=== PATIENT | male | born 1985 | race American Indian/Alaskan Native ===

== ENCOUNTER 2018-10-21 14:05 | Inpatient (IN) | payer MEDICARE ==
[2018-10-21] MEDS ORDERED: NACL 0.9% 1000 ML 1,000 ML IV ONE (14:42)
[2018-10-21] MEDS ORDERED: HALDOL IM ONE (14:42)
[2018-10-21 15:24] LABS: Bacteria,Urine 1+ /HPF (Negative); Bilirubin,Urine NEG (Negative); Blood,Urine SM (Negative); Color,Urine Yellow (Yellow); Mucus,Urine FEW /HPF
--- NOTE | 2018-10-21 15:25 | XRay Report ---
AP CHEST: HISTORY: Altered mental status AP view of the chest demonstrates a normal mediastinal and cardiac contour with clear lungs and normal bony and soft tissue structures. IMPRESSION: Unremarkable AP chest.
[2018-10-21 15:33] LABS: Benzodiazepines Screen,Urine PRESUMPTIVE NEGATIVE; Cannabinoid Screen,Urine PRESUMPTIVE NEGATIVE; Cocaine Screen,Urine PRESUMPTIVE NEGATIVE; Methadone Screen,Urine PRESUMPTIVE NEGATIVE; Opiate Screen,Urine PRESUMPTIVE NEGATIVE
[2018-10-21 15:48] LABS: Amphetamine Screen,Urine PRESUMPTIVE POSITIVE
[2018-10-21 16:13] LABS: Alanine Aminotransferase < 5 units/L (7-56); BUN/Creatinine Ratio 19; Blood Urea Nitrogen 21 mg/dL (9-20); Calcium 8.8 mg/dL (8.4-10.2); Hemolysis Index 19
[2018-10-21] MEDS ORDERED: ATIVAN IV ONE (16:24)
--- NOTE | 2018-10-21 16:24 | Emergency Department Report ---
ED Altered Mental Status HPI - General Chief Complaint: Psych Stated Complaint: AUTISM/MH Time Seen by Provider: 10/21/18 14:21 Source: family Mode of arrival: Ambulatory Limitations: Altered Mental Status - History of Present Illness Initial Comments: Ariel is a 32 yo male with hx of severe intellectual disability and autism who presents with agitation, altered mental status. He is nonverbal at baseline. Over the last year, behavior has escalated to agitation and defiance. However, over the last day, his behavior has become severe. He scratched himself severely. He threw objects from the wall. He seemed dazed at times. Refused to eat, walk or answer questions. Brought to ED by private auto with caregivers. He receives 24-hour care a month as to legal guardians and caregiver. He is not left unattended. He has not been around unknown persons. Has never been admitted in the past. Does not require mood stablizers. Only medications: nasal spray, albuterol nebulizer and MDI Caregiver noticed twitching in hands and feet. Has been under the care of legal guardians and Mrs. Bernal for the past 23 years. Mrs. Aster Rodriguez is bedside. She is a caregiver who assists and Mrs. Bernal. She has known Ariel for 23 years Ms. Aster Rodriguez phone number Mrs. Lata Bernal Followed by PCP Angeli Fernandez MD Complaint: altered mental status, decreased responsiveness -: days(s) (1) Severity: severe Consistency of Symptoms: getting worse - Related Data Previous Rx's Medication Instructions Recorded Last Taken Type ALBUTEROL Inhaler (OR & NICU) 2 puff IH QID PRN #1 inhalation 01/28/14 03/14/15 Rx [ProAir HFA Inhaler] Allergies Allergy/AdvReac Type Severity Reaction Status Date / Time No Known Allergies Allergy Verified 03/14/15 23:40 ED Review of Systems ROS: Stated complaint: AUTISM/MH Other details as noted in HPI Comment: Unobtainable due to pts medical conditions (severe and intellectual disability and autism history of recent mental status) ED Past Medical Hx - Past Medical History Previous Medical History?: Yes Hx Asthma: Yes Additional medical history: AUTISM, MILD RETARDATION - Surgical History Additional Surgical History: NOSE SURGERY - Family History Family history: other (unknown, both parents are ) - Social History Smoking Status: Unknown if ever smoked Other Social History: Ariel has been under care of legal guardians for past 23 years - Medications Home Medications: Home Medications Medication Instructions Recorded Confirmed Last Taken Type ALBUTEROL Inhaler (OR & NICU) 2 puff IH QID PRN #1 inhalation 01/28/14 10/21/18 03/14/15 Rx [ProAir HFA Inhaler] ED Physical Exam - General Limitations: Language Barrier, Altered Mental Status General appearance: lethargic, other (case eyes closed appears disease) - Head Head exam: Present: atraumatic, normocephalic - Eye Eye exam: Present: normal appearance - ENT ENT exam: Present: mucous membranes moist - Neck Neck exam: Present: normal inspection - Respiratory Respiratory exam: Present: normal lung sounds bilaterally. Absent: respiratory distress - Cardiovascular Cardiovascular Exam: Present: regular rate, normal rhythm. Absent: systolic murmur, diastolic murmur, rubs, gallop - GI/Abdominal GI/Abdominal exam: Present: soft, normal bowel sounds - Rectal Rectal exam: Present: deferred - Extremities Exam Extremities exam: Present: normal inspection - Back Exam Back exam: Present: normal inspection - Neurological Exam Neurological exam: Present: alert, oriented X3 - Psychiatric Psychiatric exam: Present: normal affect, normal mood - Skin Skin exam: Present: other (multiple scratches on face and extremities). Absent: rash ED Course Vital Signs 10/21/18 10/21/18 10/21/18 14:49 14:50 20:00 Temperature 97.9 F 98.5 F Pulse Rate 69 97 H Respiratory 19 18 18 Rate Blood Pressure 149/91 149/89 [Right] O2 Sat by Pulse 100 100 97 Oximetry - Lab Data Result diagrams: 10/22/18 06:40 10/22/18 06:40 Lab Results 10/21/18 10/21/18 10/21/18 Range/Units 14:48 14:48 15:26 Sodium 143 (137-145) mmol/L Potassium 3.7 (3.6-5.0) mmol/L Chloride 106.7 (98-107) mmol/L Carbon Dioxide 24 (22-30) mmol/L Anion Gap 16 mmol/L BUN 21 H (9-20) mg/dL Creatinine 1.1 (0.8-1.5) mg/dL Estimated GFR > 60 ml/min BUN/Creatinine Ratio 19 % Glucose 128 H (75-100) mg/dL Lactic Acid (0.7-2.0) mmol/L Calcium 8.8 (8.4-10.2) mg/dL Total Bilirubin 0.30 (0.1-1.2) mg/dL AST 20 (5-40) units/L ALT < 5 L (7-56) units/L Alkaline Phosphatase 70 (35-129) units/L Ammonia (25-60) umol/L Total Creatine Kinase 318 H (55-170) units/L Troponin T < 0.010 (0.00-0.029) ng/mL Total Protein 7.3 (6.3-8.2) g/dL Albumin 4.0 (3.9-5) g/dL Albumin/Globulin Ratio 1.2 % TSH (0.270-4.200) mlU/mL Urine Color Yellow (Yellow) Urine Turbidity Cloudy (Clear) Urine pH 5.0 (5.0-7.0) Ur Specific [place] 1.039 H (1.003-1.030) Urine Protein 100 mg/dl (Negative) mg/dL Urine Glucose (UA) 50 (Negative) mg/dL Urine Ketones Tr (Negative) mg/dL Urine Blood Sm (Negative) Urine Nitrite Neg (Negative) Urine Bilirubin Neg (Negative) Urine Urobilinogen 2.0 (<2.0) mg/dL Ur Leukocyte Esterase Neg (Negative) Urine WBC (Auto) 2.0 (0.0-6.0) /HPF Urine RBC (Auto) 1.0 (0.0-6.0) /HPF U Epithel Cells (Auto) < 1.0 (0-13.0) /HPF Urine Bacteria (Auto) 1+ (Negative) /HPF Urine Mucus Few /HPF Urine Yeast (Budding) Few /HPF Salicylates (2.8-20.0) mg/dL Urine Opiates Screen Presumptive negative Urine Methadone Screen Presumptive negative Acetaminophen (10.0-30.0) ug/mL Ur Barbiturates Screen Presumptive negative Ur Phencyclidine Scrn Presumptive negative Ur Amphetamines Screen Presumptive positive U Benzodiazepines Scrn Presumptive negative Urine Cocaine Screen Presumptive negative U Marijuana (THC) Screen Presumptive negative Drugs of Abuse Note Disclamer Plasma/Serum Alcohol (0-0.07) % 10/21/18 10/21/18 10/21/18 Range/Units 15:26 15:26 15:26 Sodium (137-145) mmol/L Potassium (3.6-5.0) mmol/L Chloride (98-107) mmol/L Carbon Dioxide (22-30) mmol/L Anion Gap mmol/L BUN (9-20) mg/dL Creatinine (0.8-1.5) mg/dL Estimated GFR ml/min BUN/Creatinine Ratio % Glucose (75-100) mg/dL Lactic Acid 3.00 H* (0.7-2.0) mmol/L Calcium (8.4-10.2) mg/dL Total Bilirubin (0.1-1.2) mg/dL AST (5-40) units/L ALT (7-56) units/L Alkaline Phosphatase (35-129) units/L Ammonia 17.0 L (25-60) umol/L Total Creatine Kinase (55-170) units/L Troponin T (0.00-0.029) ng/mL Total Protein (6.3-8.2) g/dL Albumin (3.9-5) g/dL Albumin/Globulin Ratio % TSH 0.534 (0.270-4.200) mlU/mL Urine Color (Yellow) Urine Turbidity (Clear) Urine pH (5.0-7.0) Ur Specific [place] (1.003-1.030) Urine Protein (Negative) mg/dL Urine Glucose (UA) (Negative) mg/dL Urine Ketones (Negative) mg/dL Urine Blood (Negative) Urine Nitrite (Negative) Urine Bilirubin (Negative) Urine Urobilinogen (<2.0) mg/dL Ur Leukocyte Esterase (Negative) Urine WBC (Auto) (0.0-6.0) /HPF Urine RBC (Auto) (0.0-6.0) /HPF U Epithel Cells (Auto) (0-13.0) /HPF Urine Bacteria (Auto) (Negative) /HPF Urine Mucus /HPF Urine Yeast (Budding) /HPF Salicylates (2.8-20.0) mg/dL Urine Opiates Screen Urine Methadone Screen Acetaminophen (10.0-30.0) ug/mL Ur Barbiturates Screen Ur Phencyclidine Scrn Ur Amphetamines Screen U Benzodiazepines Scrn Urine Cocaine Screen U Marijuana (THC) Screen Drugs of Abuse Note Plasma/Serum Alcohol (0-0.07) % 10/21/18 10/21/18 10/21/18 Range/Units 15:26 15:26 15:26 Sodium (137-145) mmol/L Potassium (3.6-5.0) mmol/L Chloride (98-107) mmol/L Carbon Dioxide (22-30) mmol/L Anion Gap mmol/L BUN (9-20) mg/dL Creatinine (0.8-1.5) mg/dL Estimated GFR ml/min BUN/Creatinine Ratio % Glucose (75-100) mg/dL Lactic Acid (0.7-2.0) mmol/L Calcium (8.4-10.2) mg/dL Total Bilirubin (0.1-1.2) mg/dL AST (5-40) units/L ALT (7-56) units/L Alkaline Phosphatase (35-129) units/L Ammonia (25-60) umol/L Total Creatine Kinase (55-170) units/L Troponin T (0.00-0.029) ng/mL Total Protein (6.3-8.2) g/dL Albumin (3.9-5) g/dL Albumin/Globulin Ratio % TSH (0.270-4.200) mlU/mL Urine Color (Yellow) Urine Turbidity (Clear) Urine pH (5.0-7.0) Ur Specific [place] (1.003-1.030) Urine Protein (Negative) mg/dL Urine Glucose (UA) (Negative) mg/dL Urine Ketones (Negative) mg/dL Urine Blood (Negative) Urine Nitrite (Negative) Urine Bilirubin (Negative) Urine Urobilinogen (<2.0) mg/dL Ur Leukocyte Esterase (Negative) Urine WBC (Auto) (0.0-6.0) /HPF Urine RBC (Auto) (0.0-6.0) /HPF U Epithel Cells (Auto) (0-13.0) /HPF Urine Bacteria (Auto) (Negative) /HPF Urine Mucus /HPF Urine Yeast (Budding) /HPF Salicylates < 0.3 L (2.8-20.0) mg/dL Urine Opiates Screen Urine Methadone Screen Acetaminophen < 5.0 L (10.0-30.0) ug/mL Ur Barbiturates Screen Ur Phencyclidine Scrn Ur Amphetamines Screen U Benzodiazepines Scrn Urine Cocaine Screen U Marijuana (THC) Screen Drugs of Abuse Note Plasma/Serum Alcohol < 0.01 (0-0.07) % 10/21/18 16:55 Normal sinus rhythm rate 90 beats a minute axis deviation nonspecific T wave pattern no significant ST elevation - Radiology Data Radiology results: report reviewed AP portable chest radiograph no acute process according to radiology report - Medical Decision Making Ariel presents with altered mental status, differential diagnosis includes infection, polypharmacy, unintentional drug ingestion, seizure, head trauma. Current mental status different from baseline. Ariel appears dazed and delirious. +UDS amphetamine, possible drug ingestion, Admitted to hospitalist service for further w/u Critical care attestation.: If time is entered above; I have spent that time in minutes in the direct care of this critically ill patient, excluding procedure time. ED Disposition Clinical Impression: Acute encephalopathy Disposition: 09 OP ADMIT IP TO THIS HOSP Is pt being admited?: Yes Does the pt Need Aspirin: No Condition: Fair
[2018-10-21 16:44] LABS: Basophils % (Auto) 0.1 % (0.0-1.8); Hematocrit 41.6 % (35.5-45.6); Hemoglobin 14.3 gm/dl (11.8-15.2); Lymphocytes # (Auto) 0.3 K/mm3 (1.2-5.4); Lymphocytes % (Auto) 2.6 % (13.4-35.0); Mean Corpuscular HGB Conc 34 % (32-34); Mean Corpuscular Volume 94 fl (84-94); Monocytes # (Auto) 1.1 K/mm3 (0.0-0.8); Monocytes % (Auto) 8.2 % (0.0-7.3); Platelet Count 222 K/mm3 (140-440); Red Blood Count 4.43 M/mm3 (3.65-5.03); Red Cell Distribution Width 13.1 % (13.2-15.2)
--- NOTE | 2018-10-21 19:09 | Cat Scan Report ---
PROCEDURE: CT HEAD/BRAIN WO CON TECHNIQUE: Axial helical imaging from the skull base to the vertex. HISTORY: Altered Mental Status COMPARISONS: None FINDINGS: There is no evidence of an acute intracranial process, intracranial hemorrhage or mass effect. The ventricles are normal size. The visualized portions of the orbits, paranasal and mastoid sinuses are unremarkable. The bony structures are unremarkable. IMPRESSION: 1. No evidence of an acute intracranial process, intracranial hemorrhage or mass effect. If there is a clinical suspicion of an acute intracranial process, MRI brain may be helpful for furth er evaluation. This document is electronically signed by Sandra Coello MD., October 21 2018 07:06:40 PM ET
--- NOTE | 2018-10-21 22:10 | Event Note ---
Date: 10/21/18 See Hp in reports Acute Encephalopathy Acute psychosis MH consult
[2018-10-21] MEDS ORDERED: PROAIR IH PRN (22:11)
[2018-10-21] MEDS ORDERED: ZOFRAN IV PRN (22:11)
[2018-10-21] MEDS ORDERED: TYLENOL PO PRN (22:11)
[2018-10-21] MEDS ORDERED: SODIUM CHLORIDE FLUSH SYRINGE 10 ML IV PRN (22:11)
[2018-10-21] MEDS ORDERED: IBUPROFEN PO PRN (22:11)
[2018-10-21] MEDS ORDERED: GEODON IM PRN (22:15)
[2018-10-21] MEDS ORDERED: XYLOCAINE 1% MPF 5 mL INFILTRATI ONE (22:16)
[2018-10-21] MEDS ORDERED: PROVENTIL IH PRN (22:24)
[2018-10-21] MEDS: NACL 0.9% 1000 ML 1,000 ML IV SCH (22:39)
[2018-10-21] MEDS: ATIVAN IV PRN (22:56)
[2018-10-22] MEDS: HALDOL IM PRN (02:37)
--- NOTE | 2018-10-22 05:41 | History and Physical Report ---
CHIEF COMPLAINT: Altered mental status for 1 day. HISTORY OF PRESENT ILLNESS: A 32-year-old male with mild mental retardation and autism, presents with severe agitation and altered sensorium. Nonverbal at baseline. Over the last 24 hours, he has been scratching himself and throwing objects at the wall. Fumes days' at time. Refuses to eat, walk or answer questions and brought to the Emergency Room by private vehicle with caregivers. He receives 24 care from his legal guardians and caregiver. He has never left unattended. He has never been admitted in the past. Not on any antipsychotics. Takes albuterol and nasal spray. The patient has been scratching himself and has severe scratches on the neck and upper chest. No shortness of breath. PAST MEDICAL HISTORY: Significant for autism, mental retardation, and asthma. PAST SURGICAL HISTORY: No surgeries. FAMILY HISTORY: Unknown. Both parents are . SOCIAL HISTORY: Does not smoke. No blood draws. REVIEW OF SYSTEMS: Significant for severe agitation, confusion, altered sensorium and scratching himself, especially of the neck and upper chest and throwing objects. Otherwise, review of systems is negative. PHYSICAL EXAMINATION: GENERAL: Young male, lying in bed, occasionally alert, mostly going into sleep. VITAL SIGNS: Significant for blood pressure of 149/91 and 149/89, temperature is 97.9, pulse is 69, respirations are 19, sats are 100%. HEENT: Unremarkable. Pupils equal and reactive. NECK: Supple. Scratch mcneill present. Superficial abrasions present on the neck and upper chest. CHEST AND LUNGS: Clear to auscultation and percussion. CARDIOVASCULAR: S1, S2 heard. No gallop, no murmur, no rub. Apical impulse in left fifth intercostal space and midclavicular line. ABDOMEN: Soft and benign. No hepatosplenomegaly. No guarding, no rigidity. Hernial orifices are normal. EXTREMITIES: Good pedal pulses. No pedal edema. CENTRAL NERVOUS SYSTEM: Alert, but not oriented to time and place. Falls in to sleep easily. Moves all 4 extremities. LABORATORY DATA: Significant for lactic acid of 3.0, BUN and creatinine of 21 and 1.10. White count of 13,400, H and H are 14.3 and 41.6, platelet count is 222,000. Ammonia level is 17, low. Total CK is 318, slightly high. Urine is negative. Urine drug is screen positive for amphetamines. ASSESSMENT AND PLAN: 1. Acute encephalopathy secondary to possible amphetamine use or acute psychosis. Mental health consult requested. IV fluids in the meantime, supportive care, Geodon 20 mg hours p.r.n. 2. Acute psychosis. Mental health consult requested. The patient never had psychotic symptoms before. 3. Deep venous thrombosis prophylaxis, Lovenox 40 mg subcutaneous daily. 4. Elevated lactic acid, nonspecific. No signs of sepsis. We will repeat the lactic acid. Lactic acid probably secondary to agitation and severe muscle movement. JOB# [id number] JEREMIAH/JJ SAHU
[2018-10-22] MEDS: ATIVAN IV PRN (06:38)
[2018-10-22 06:59] LABS: Basophils % (Auto) 0.1 % (0.0-1.8); Hemoglobin 13.7 gm/dl (11.8-15.2); Lymphocytes % (Auto) 9.2 % (13.4-35.0); Mean Corpuscular HGB Conc 34 % (32-34); Mean Corpuscular Volume 94 fl (84-94); Monocytes # (Auto) 0.8 K/mm3 (0.0-0.8); Monocytes % (Auto) 7.2 % (0.0-7.3); Platelet Count 211 K/mm3 (140-440); Red Blood Count 4.27 M/mm3 (3.65-5.03); Red Cell Distribution Width 13.1 % (13.2-15.2)
[2018-10-22 07:59] LABS: Alanine Aminotransferase 8 units/L (7-56); Albumin 3.7 g/dL (3.9-5); BUN/Creatinine Ratio 16; Blood Urea Nitrogen 14 mg/dL (9-20); Calcium 8.9 mg/dL (8.4-10.2); Hemolysis Index 20
[2018-10-22] MEDS ORDERED: ROCEPHIN IM SCH (10:00)
[2018-10-22] MEDS: ROCEPHIN/NS 2 GM/100 ML 2 GM/100 ML BAG IV SCH (11:31)
[2018-10-22] MEDS: SODIUM CHLORIDE FLUSH SYRINGE 10 ML IV SCH ×2 (11:32→21:21)
--- NOTE | 2018-10-22 13:07 | Progress Note ---
Hospitalist Physical - Constitutional Vitals: Temp Pulse Resp BP Pulse Ox 99.1 F 75 18 132/79 100 10/22/18 11:33 10/22/18 11:33 10/22/18 11:33 10/22/18 11:33 10/22/18 11:33 Results - Labs CBC & Chem 7: 10/22/18 06:40 04 06:40 Labs: Laboratory Last Values WBC 10.6 K/mm3 (4.5-11.0) 10/22/18 06:40 RBC 4.27 M/mm3 (3.65-5.03) 10/22/18 06:40 Hgb 13.7 gm/dl (11.8-15.2) 10/22/18 06:40 Hct 40.0 % (35.5-45.6) 10/22/18 06:40 MCV 94 fl (84-94) 10/22/18 06:40 MCH 32 pg (28-32) 10/22/18 06:40 MCHC 34 % (32-34) 10/22/18 06:40 RDW 13.1 % (13.2-15.2) L 10/22/18 06:40 Plt Count 211 K/mm3 (140-440) 10/22/18 06:40 Lymph % (Auto) 9.2 % (13.4-35.0) L 10/22/18 06:40 [place] % (Auto) 7.2 % (0.0-7.3) 10/22/18 06:40 Eos % (Auto) 0.0 % (0.0-4.3) 10/22/18 06:40 Baso % (Auto) 0.1 % (0.0-1.8) 10/22/18 06:40 Lymph # 1.0 K/mm3 (1.2-5.4) L 10/22/18 06:40 [place] # 0.8 K/mm3 (0.0-0.8) 10/22/18 06:40 Eos # 0.0 K/mm3 (0.0-0.4) 10/22/18 06:40 Baso # 0.0 K/mm3 (0.0-0.1) 10/22/18 06:40 Seg Neutrophils % 83.5 % (40.0-70.0) H 10/22/18 06:40 Seg Neutrophils # 8.9 K/mm3 (1.8-7.7) H 10/22/18 06:40 Sodium 142 mmol/L (137-145) 10/22/18 06:40 Potassium 4.4 mmol/L (3.6-5.0) 10/22/18 06:40 Chloride 106.3 mmol/L (98-107) 10/22/18 06:40 Carbon Dioxide 24 mmol/L (22-30) 10/22/18 06:40 Anion Gap 16 mmol/L 10/22/18 06:40 BUN 14 mg/dL (9-20) 10/22/18 06:40 Creatinine 0.9 mg/dL (0.8-1.5) 10/22/18 06:40 Estimated GFR > 60 ml/min 10/22/18 06:40 BUN/Creatinine Ratio 16 % 10/22/18 06:40 Glucose 96 mg/dL (75-100) 10/22/18 06:40 Hemoglobin A1c 5.3 % (4-6) 10/21/18 23:17 Lactic Acid 1.00 mmol/L (0.7-2.0) 10/22/18 06:40 Calcium 8.9 mg/dL (8.4-10.2) 10/22/18 06:40 Total Bilirubin 0.50 mg/dL (0.1-1.2) 10/22/18 06:40 AST 35 units/L (5-40) 10/22/18 06:40 ALT 8 units/L (7-56) 10/22/18 06:40 Alkaline Phosphatase 64 units/L (35-129) 10/22/18 06:40 Ammonia 17.0 umol/L (25-60) L 10/21/18 15:26 Total Creatine Kinase 318 units/L (55-170) H 10/21/18 15:26 Troponin T < 0.010 ng/mL (0.00-0.029) 10/21/18 15:26 Total Protein 6.9 g/dL (6.3-8.2) 10/22/18 06:40 Albumin 3.7 g/dL (3.9-5) L 10/22/18 06:40 Albumin/Globulin Ratio 1.2 % 10/22/18 06:40 TSH 0.534 mlU/mL (0.270-4.200) 10/21/18 15:26 Urine Color Yellow (Yellow) 10/21/18 14:48 Urine Turbidity Cloudy (Clear) 10/21/18 14:48 Urine pH 5.0 (5.0-7.0) 10/21/18 14:48 Ur Specific [place] 1.039 (1.003-1.030) H 10/21/18 14:48 Urine Protein 100 mg/dl mg/dL (Negative) 10/21/18 14:48 Urine Glucose (UA) 50 mg/dL (Negative) 10/21/18 14:48 Urine Ketones Tr mg/dL (Negative) 10/21/18 14:48 Urine Blood Sm (Negative) 10/21/18 14:48 Urine Nitrite Neg (Negative) 10/21/18 14:48 Urine Bilirubin Neg (Negative) 10/21/18 14:48 Urine Urobilinogen 2.0 mg/dL (<2.0) 10/21/18 14:48 Ur Leukocyte Esterase Neg (Negative) 10/21/18 14:48 Urine WBC (Auto) 2.0 /HPF (0.0-6.0) 10/21/18 14:48 Urine RBC (Auto) 1.0 /HPF (0.0-6.0) 10/21/18 14:48 U Epithel Cells (Auto) < 1.0 /HPF (0-13.0) 10/21/18 14:48 Urine Bacteria (Auto) 1+ /HPF (Negative) 10/21/18 14:48 Urine Mucus Few /HPF 10/21/18 14:48 Urine Yeast (Budding) Few /HPF 10/21/18 14:48 Salicylates < 0.3 mg/dL (2.8-20.0) L 10/21/18 15:26 Urine Opiates Screen Presumptive negative 10/21/18 14:48 Urine Methadone Screen Presumptive negative 10/21/18 14:48 Acetaminophen < 5.0 ug/mL (10.0-30.0) L 10/21/18 15:26 Ur Barbiturates Screen Presumptive negative 10/21/18 14:48 Ur Phencyclidine Scrn Presumptive negative 10/21/18 14:48 Ur Amphetamines Screen Presumptive positive 10/21/18 14:48 U Benzodiazepines Scrn Presumptive negative 10/21/18 14:48 Urine Cocaine Screen Presumptive negative 10/21/18 14:48 U Marijuana (THC) Screen Presumptive negative 10/21/18 14:48 Drugs of Abuse Note Disclamer 10/21/18 14:48 Plasma/Serum Alcohol < 0.01 % (0-0.07) 10/21/18 15:26 Active Medications - Current Medications Current Medications: Generic Name Dose Route Start Last Admin Trade Name Freq PRN Reason Stop Dose Admin Acetaminophen 650 mg 10/21/18 22:11 Tylenol PO Q4H PRN Pain MILD(1-3)/Fever >100.5/BRAXTON Albuterol 2.5 mg 10/21/18 22:24 Proventil IH Q4HRT PRN Shortness Of Breath Haloperidol Lactate 5 mg 10/21/18 22:18 10/22/18 02:37 Haldol IM 5 mg Q6H PRN Administration Agitation Sodium Chloride 1,000 mls @ 75 mls/hr 10/21/18 23:00 10/21/18 22:39 Nacl 0.9% 1000 Ml IV 75 mls/hr DIRECT SOFIA Administration Ceftriaxone Sodium 2 gm in 100 mls @ 200 mls/hr 10/22/18 10:00 10/22/18 11:31 Rocephin/Ns 2 Gm/100 Ml IV 200 mls/hr Q24HR SOFIA Administration Ibuprofen 600 mg 10/21/18 22:11 Motrin PO Q6H PRN Pain, Mild (1-3) Lorazepam 1 mg 10/21/18 22:30 10/22/18 06:38 Ativan IV 1 mg Q4H PRN Administration Agitation Ondansetron HCl 4 mg 10/21/18 22:11 Zofran IV Q8H PRN Nausea And Vomiting Sodium Chloride 10 ml 10/22/18 10:00 10/22/18 11:32 Sodium Chloride Flush Syringe 10 Ml IV 10 ml BID SOFIA Administration Sodium Chloride 10 ml 10/21/18 22:11 Sodium Chloride Flush Syringe 10 Ml IV PRN PRN LINE FLUSH Ziprasidone 20 mg 10/21/18 22:15 Geodon IM Q4H PRN Agitation
[2018-10-22] MEDS: NACL 0.9% 1000 ML 1,000 ML IV SCH (18:03)
--- NOTE | 2018-10-22 18:05 | Progress Note ---
Assessment and Plan Assessment and plan: --Acute metabolic encephalopathy; Multifactorial, sepsis secondary to UTI, psychosis, positive drug screen, Developmental delay, Continue supportive care --Acute psychosis; family reports patient never had any psychotic symptoms in the past, probably amphetamine related., Supportive care, psych evaluation --Positive urine drug screen; amphetamine positive Mother and family deny patient using amphetamines Check with case management to evaluate home situation --Sepsis secondary to UTI; empiric antibiotics, follow cultures --Lactic acidosis; secondary to UTI, closely monitor --DVT prophylaxis; Lovenox Plan of care reviewed with the patient' s mother and other family members. They had multiple questions and concerns about positive drug screen Discussed with case management and patient's nurse History Interval history: Patient seen and examined this morning medical records reviewed Admitted with altered level of consciousness acute psychosis and UTI Patient is sleeping, restraint for safety because of aggression and agitation No new events reported by the nursing staff Vital signs reviewed Hospitalist Physical - Constitutional Vitals: Temp Pulse Resp BP Pulse Ox 99.1 F 75 18 132/79 100 10/22/18 11:33 10/22/18 11:33 10/22/18 11:33 10/22/18 11:33 10/22/18 11:33 General appearance: Present: no acute distress, cachectic, disheveled, other (sedated) - EENT Eyes: Present: PERRL, EOM intact - Neck Neck: Present: supple, normal ROM - Respiratory Respiratory: bilateral: diminished, negative: rales, rhonchi, wheezing - Cardiovascular Rhythm: regular Heart Sounds: Present: S1 & S2 - Extremities Extremities: no ischemia, No edema - Abdominal General gastrointestinal: soft, non-tender, non-distended, normal bowel sounds - Integumentary Integumentary: Present: clear, warm - Psychiatric Psychiatric: other (noncommunicative sedated.) - Neurologic Neurologic: other (noncommunicative sedated) Results - Labs CBC & Chem 7: 10/22/18 06:40 10/22/18 06:40 Labs: Laboratory Last Values WBC 10.6 K/mm3 (4.5-11.0) 10/22/18 06:40 RBC 4.27 M/mm3 (3.65-5.03) 10/22/18 06:40 Hgb 13.7 gm/dl (11.8-15.2) 10/22/18 06:40 Hct 40.0 % (35.5-45.6) 10/22/18 06:40 MCV 94 fl (84-94) 10/22/18 06:40 MCH 32 pg (28-32) 10/22/18 06:40 MCHC 34 % (32-34) 10/22/18 06:40 RDW 13.1 % (13.2-15.2) L 10/22/18 06:40 Plt Count 211 K/mm3 (140-440) 10/22/18 06:40 Lymph % (Auto) 9.2 % (13.4-35.0) L 10/22/18 06:40 [place] % (Auto) 7.2 % (0.0-7.3) 10/22/18 06:40 Eos % (Auto) 0.0 % (0.0-4.3) 10/22/18 06:40 Baso % (Auto) 0.1 % (0.0-1.8) 10/22/18 06:40 Lymph # 1.0 K/mm3 (1.2-5.4) L 10/22/18 06:40 [place] # 0.8 K/mm3 (0.0-0.8) 10/22/18 06:40 Eos # 0.0 K/mm3 (0.0-0.4) 10/22/18 06:40 Baso # 0.0 K/mm3 (0.0-0.1) 10/22/18 06:40 Seg Neutrophils % 83.5 % (40.0-70.0) H 10/22/18 06:40 Seg Neutrophils # 8.9 K/mm3 (1.8-7.7) H 10/22/18 06:40 Sodium 142 mmol/L (137-145) 10/22/18 06:40 Potassium 4.4 mmol/L (3.6-5.0) 10/22/18 06:40 Chloride 106.3 mmol/L (98-107) 10/22/18 06:40 Carbon Dioxide 24 mmol/L (22-30) 10/22/18 06:40 Anion Gap 16 mmol/L 10/22/18 06:40 BUN 14 mg/dL (9-20) 10/22/18 06:40 Creatinine 0.9 mg/dL (0.8-1.5) 10/22/18 06:40 Estimated GFR > 60 ml/min 10/22/18 06:40 BUN/Creatinine Ratio 16 % 10/22/18 06:40 Glucose 96 mg/dL (75-100) 10/22/18 06:40 Hemoglobin A1c 5.3 % (4-6) 10/21/18 23:17 Lactic Acid 1.00 mmol/L (0.7-2.0) 10/22/18 06:40 Calcium 8.9 mg/dL (8.4-10.2) 10/22/18 06:40 Total Bilirubin 0.50 mg/dL (0.1-1.2) 10/22/18 06:40 AST 35 units/L (5-40) 10/22/18 06:40 ALT 8 units/L (7-56) 10/22/18 06:40 Alkaline Phosphatase 64 units/L (35-129) 10/22/18 06:40 Ammonia 17.0 umol/L (25-60) L 10/21/18 15:26 Total Creatine Kinase 318 units/L (55-170) H 10/21/18 15:26 Troponin T < 0.010 ng/mL (0.00-0.029) 10/21/18 15:26 Total Protein 6.9 g/dL (6.3-8.2) 10/22/18 06:40 Albumin 3.7 g/dL (3.9-5) L 10/22/18 06:40 Albumin/Globulin Ratio 1.2 % 10/22/18 06:40 TSH 0.534 mlU/mL (0.270-4.200) 10/21/18 15:26 Urine Color Yellow (Yellow) 10/21/18 14:48 Urine Turbidity Cloudy (Clear) 10/21/18 14:48 Urine pH 5.0 (5.0-7.0) 10/21/18 14:48 Ur Specific [place] 1.039 (1.003-1.030) H 10/21/18 14:48 Urine Protein 100 mg/dl mg/dL (Negative) 10/21/18 14:48 Urine Glucose (UA) 50 mg/dL (Negative) 10/21/18 14:48 Urine Ketones Tr mg/dL (Negative) 10/21/18 14:48 Urine Blood Sm (Negative) 10/21/18 14:48 Urine Nitrite Neg (Negative) 10/21/18 14:48 Urine Bilirubin Neg (Negative) 10/21/18 14:48 Urine Urobilinogen 2.0 mg/dL (<2.0) 10/21/18 14:48 Ur Leukocyte Esterase Neg (Negative) 10/21/18 14:48 Urine WBC (Auto) 2.0 /HPF (0.0-6.0) 10/21/18 14:48 Urine RBC (Auto) 1.0 /HPF (0.0-6.0) 10/21/18 14:48 U Epithel Cells (Auto) < 1.0 /HPF (0-13.0) 10/21/18 14:48 Urine Bacteria (Auto) 1+ /HPF (Negative) 10/21/18 14:48 Urine Mucus Few /HPF 10/21/18 14:48 Urine Yeast (Budding) Few /HPF 10/21/18 14:48 Salicylates < 0.3 mg/dL (2.8-20.0) L 10/21/18 15:26 Urine Opiates Screen Presumptive negative 10/21/18 14:48 Urine Methadone Screen Presumptive negative 10/21/18 14:48 Acetaminophen < 5.0 ug/mL (10.0-30.0) L 10/21/18 15:26 Ur Barbiturates Screen Presumptive negative 10/21/18 14:48 Ur Phencyclidine Scrn Presumptive negative 10/21/18 14:48 Ur Amphetamines Screen Presumptive positive 10/21/18 14:48 U Benzodiazepines Scrn Presumptive negative 10/21/18 14:48 Urine Cocaine Screen Presumptive negative 10/21/18 14:48 U Marijuana (THC) Screen Presumptive negative 10/21/18 14:48 Drugs of Abuse Note Disclamer 10/21/18 14:48 Plasma/Serum Alcohol < 0.01 % (0-0.07) 10/21/18 15:26 Active Medications - Current Medications Current Medications: Generic Name Dose Route Start Last Admin Trade Name Freq PRN Reason Stop Dose Admin Acetaminophen 650 mg 10/21/18 22:11 Tylenol PO Q4H PRN Pain MILD(1-3)/Fever >100.5/BRAXTON Albuterol 2.5 mg 10/21/18 22:24 Proventil IH Q4HRT PRN Shortness Of Breath Haloperidol Lactate 5 mg 10/21/18 22:18 10/22/18 02:37 Haldol IM 5 mg Q6H PRN Administration Agitation Sodium Chloride 1,000 mls @ 75 mls/hr 10/21/18 23:00 10/22/18 18:03 Nacl 0.9% 1000 Ml IV 75 mls/hr DIRECT SOFIA Administration Ceftriaxone Sodium 2 gm in 100 mls @ 200 mls/hr 10/22/18 10:00 10/22/18 11:31 Rocephin/Ns 2 Gm/100 Ml IV 200 mls/hr Q24HR SOFIA Administration Ibuprofen 600 mg 10/21/18 22:11 Motrin PO Q6H PRN Pain, Mild (1-3) Lorazepam 1 mg 10/21/18 22:30 10/22/18 06:38 Ativan IV 1 mg Q4H PRN Administration Agitation Ondansetron HCl 4 mg 10/21/18 22:11 Zofran IV Q8H PRN Nausea And Vomiting Sodium Chloride 10 ml 10/22/18 10:00 10/22/18 11:32 Sodium Chloride Flush Syringe 10 Ml IV 10 ml BID SOFIA Administration Sodium Chloride 10 ml 10/21/18 22:11 Sodium Chloride Flush Syringe 10 Ml IV PRN PRN LINE FLUSH Ziprasidone 20 mg 10/21/18 22:15 Geodon IM Q4H PRN Agitation Nutrition/Malnutrition Assess - Dietary Evaluation Nutrition/Malnutrition Findings: Nutrition Notes Start: 10/22/18 15:09 Freq: Status: Active Protocol: Document 10/22/18 15:09 RM (Rec: 10/22/18 15:15 [id number]) Nutrition Notes Need for Assessment generated from: Low BMI Initial or Follow up Assessment Other Pertinent Diagnosis Autism, Mental retardation, Nonverbal, Acute encephalopathy Current Diet Regular Labs/Tests Reviewed Pertinent Medications Reviewed Height 6 ft 3 in Weight 56 kg [place] Body Weight (kg) 89.09 BMI 15.4 Subjective/Other Information Screened for low BMI. Pt does not appear to have BMI of 0.5. Weighed pt on bedscale and received 56 kg. Wt corrected accordingly in record. Pt asleep at time of visit. No family present. Per nurse and tech pt has been asleep since start of shift. Noted uneaten breakfast at bedside. No temporal or orbital wasting . Percent of energy/protein needs met: 0%/0% Burn Absent Trauma Absent #1 Nutrition Diagnosis Predicted suboptimal energy intake Etiology autism, mental retardation, acute encephalopathy As Evidenced by Signs and Symptoms BMI of 15.4, uneaten breakfast at bedside Is patient on ventilator? No Is Patient Ambulatory and/or Out of Bed No [facility] 1911.252 Kcal/Kg value to use for calculation 43 Approximate Energy Requirements Using 2408 kcal/Kg Calculation Used for Recommendations Kcal/kg Additional Notes Protein Needs: 67-84g (1.2-1. 5g/kg) Fluid Needs: 1ml/kcal Nutrition Intervention Change Diet Order: Continue current Add Supplement/Snack (indicate name/kcal Ensure Enlive 1 daily /protein ) Provides kCal: 350 Provides Protein (gm) 20 Goal #1 Meet at least 75% of calorie and protein needs via PO and ONS intakes Goal #2 Wt gain/maintenance Anticipated Discharge Needs: Regular diet Follow-Up By: 10/25/18 Additional Comments Follow for PO and ONS intakes
[2018-10-23] MEDS: NACL 0.9% 1000 ML 1,000 ML IV SCH ×2 (06:18→17:07)
[2018-10-23] MEDS: ATIVAN IV PRN (06:20)
[2018-10-23] MEDS: HALDOL IM PRN (08:24)
[2018-10-23] MEDS: ROCEPHIN/NS 2 GM/100 ML 2 GM/100 ML BAG IV SCH (08:59)
[2018-10-23] MEDS: SODIUM CHLORIDE FLUSH SYRINGE 10 ML IV SCH (09:02)
[2018-10-23] MEDS ORDERED: HALDOL IM PRN (12:12)
--- NOTE | 2018-10-23 12:16 | Progress Note ---
Assessment and Plan Assessment and plan: --Acute metabolic encephalopathy; Multifactorial, sepsis secondary to UTI, psychosis, positive drug screen, Developmental delay, Continue supportive care --Acute psychosis; family reports patient never had any psychotic symptoms in the past, probably amphetamine related., Supportive care, psych evaluation --Positive urine drug screen; amphetamine positive Mother and family deny patient using amphetamines Check with case management to evaluate home situation --Sepsis secondary to UTI; empiric antibiotics, follow cultures --Lactic acidosis; secondary to UTI, closely monitor --DVT prophylaxis; Lovenox Plan of care reviewed with the patient' s mother and other family members. They had multiple questions and concerns about positive drug screen Discussed with case management and patient's nurse History Interval history: Patient seen and examined in his room this morning medical records reviewed Patient is sleeping restrained for safety Admitted with acute psychosis, pending psych evaluation No new events reported by the nursing Vital signs reviewed Hospitalist Physical - Constitutional Vitals: Temp Pulse Resp BP Pulse Ox 99.1 F 112 H 16 156/107 97 10/23/18 05:30 10/23/18 05:30 10/23/18 08:35 10/23/18 05:30 10/23/18 05:30 General appearance: Present: no acute distress, cachectic, disheveled, other (sedated) - EENT Eyes: Present: PERRL, EOM intact - Neck Neck: Present: supple, normal ROM - Respiratory Respiratory effort: normal Respiratory: bilateral: diminished, rales, negative: rhonchi, wheezing - Cardiovascular Rhythm: regular Heart Sounds: Present: S1 & S2 - Extremities Extremities: no ischemia, No edema - Abdominal General gastrointestinal: soft, non-tender, non-distended, normal bowel sounds - Integumentary Integumentary: Present: clear, warm - Psychiatric Psychiatric: other (minimally communicative) - Neurologic Neurologic: other (minimal communication and sedated) Results - Labs CBC & Chem 7: 10/22/18 06:40 10/22/18 06:40 Labs: Laboratory Last Values WBC 10.6 K/mm3 (4.5-11.0) 10/22/18 06:40 RBC 4.27 M/mm3 (3.65-5.03) 10/22/18 06:40 Hgb 13.7 gm/dl (11.8-15.2) 10/22/18 06:40 Hct 40.0 % (35.5-45.6) 10/22/18 06:40 MCV 94 fl (84-94) 10/22/18 06:40 MCH 32 pg (28-32) 10/22/18 06:40 MCHC 34 % (32-34) 10/22/18 06:40 RDW 13.1 % (13.2-15.2) L 10/22/18 06:40 Plt Count 211 K/mm3 (140-440) 10/22/18 06:40 Lymph % (Auto) 9.2 % (13.4-35.0) L 10/22/18 06:40 [place] % (Auto) 7.2 % (0.0-7.3) 10/22/18 06:40 Eos % (Auto) 0.0 % (0.0-4.3) 10/22/18 06:40 Baso % (Auto) 0.1 % (0.0-1.8) 10/22/18 06:40 Lymph # 1.0 K/mm3 (1.2-5.4) L 10/22/18 06:40 [place] # 0.8 K/mm3 (0.0-0.8) 10/22/18 06:40 Eos # 0.0 K/mm3 (0.0-0.4) 10/22/18 06:40 Baso # 0.0 K/mm3 (0.0-0.1) 10/22/18 06:40 Seg Neutrophils % 83.5 % (40.0-70.0) H 10/22/18 06:40 Seg Neutrophils # 8.9 K/mm3 (1.8-7.7) H 10/22/18 06:40 Sodium 142 mmol/L (137-145) 10/22/18 06:40 Potassium 4.4 mmol/L (3.6-5.0) 10/22/18 06:40 Chloride 106.3 mmol/L (98-107) 10/22/18 06:40 Carbon Dioxide 24 mmol/L (22-30) 10/22/18 06:40 Anion Gap 16 mmol/L 10/22/18 06:40 BUN 14 mg/dL (9-20) 10/22/18 06:40 Creatinine 0.9 mg/dL (0.8-1.5) 10/22/18 06:40 Estimated GFR > 60 ml/min 10/22/18 06:40 BUN/Creatinine Ratio 16 % 10/22/18 06:40 Glucose 96 mg/dL (75-100) 10/22/18 06:40 Hemoglobin A1c 5.3 % (4-6) 10/21/18 23:17 Lactic Acid 1.00 mmol/L (0.7-2.0) 10/22/18 06:40 Calcium 8.9 mg/dL (8.4-10.2) 10/22/18 06:40 Total Bilirubin 0.50 mg/dL (0.1-1.2) 10/22/18 06:40 AST 35 units/L (5-40) 10/22/18 06:40 ALT 8 units/L (7-56) 10/22/18 06:40 Alkaline Phosphatase 64 units/L (35-129) 10/22/18 06:40 Ammonia 17.0 umol/L (25-60) L 10/21/18 15:26 Total Creatine Kinase 318 units/L (55-170) H 10/21/18 15:26 Troponin T < 0.010 ng/mL (0.00-0.029) 10/21/18 15:26 Total Protein 6.9 g/dL (6.3-8.2) 10/22/18 06:40 Albumin 3.7 g/dL (3.9-5) L 10/22/18 06:40 Albumin/Globulin Ratio 1.2 % 10/22/18 06:40 TSH 0.534 mlU/mL (0.270-4.200) 10/21/18 15:26 Urine Color Yellow (Yellow) 10/21/18 14:48 Urine Turbidity Cloudy (Clear) 10/21/18 14:48 Urine pH 5.0 (5.0-7.0) 10/21/18 14:48 Ur Specific [place] 1.039 (1.003-1.030) H 10/21/18 14:48 Urine Protein 100 mg/dl mg/dL (Negative) 10/21/18 14:48 Urine Glucose (UA) 50 mg/dL (Negative) 10/21/18 14:48 Urine Ketones Tr mg/dL (Negative) 10/21/18 14:48 Urine Blood Sm (Negative) 10/21/18 14:48 Urine Nitrite Neg (Negative) 10/21/18 14:48 Urine Bilirubin Neg (Negative) 10/21/18 14:48 Urine Urobilinogen 2.0 mg/dL (<2.0) 10/21/18 14:48 Ur Leukocyte Esterase Neg (Negative) 10/21/18 14:48 Urine WBC (Auto) 2.0 /HPF (0.0-6.0) 10/21/18 14:48 Urine RBC (Auto) 1.0 /HPF (0.0-6.0) 10/21/18 14:48 U Epithel Cells (Auto) < 1.0 /HPF (0-13.0) 10/21/18 14:48 Urine Bacteria (Auto) 1+ /HPF (Negative) 10/21/18 14:48 Urine Mucus Few /HPF 10/21/18 14:48 Urine Yeast (Budding) Few /HPF 10/21/18 14:48 Salicylates < 0.3 mg/dL (2.8-20.0) L 10/21/18 15:26 Urine Opiates Screen Presumptive negative 10/21/18 14:48 Urine Methadone Screen Presumptive negative 10/21/18 14:48 Acetaminophen < 5.0 ug/mL (10.0-30.0) L 10/21/18 15:26 Ur Barbiturates Screen Presumptive negative 10/21/18 14:48 Ur Phencyclidine Scrn Presumptive negative 10/21/18 14:48 Ur Amphetamines Screen Presumptive positive 10/21/18 14:48 U Benzodiazepines Scrn Presumptive negative 10/21/18 14:48 Urine Cocaine Screen Presumptive negative 10/21/18 14:48 U Marijuana (THC) Screen Presumptive negative 10/21/18 14:48 Drugs of Abuse Note Disclamer 10/21/18 14:48 Plasma/Serum Alcohol < 0.01 % (0-0.07) 10/21/18 15:26 Active Medications - Current Medications Current Medications: Generic Name Dose Route Start Last Admin Trade Name Freq PRN Reason Stop Dose Admin Acetaminophen 650 mg 10/21/18 22:11 Tylenol PO Q4H PRN Pain MILD(1-3)/Fever >100.5/BRAXTON Albuterol 2.5 mg 10/21/18 22:24 Proventil IH Q4HRT PRN Shortness Of Breath Haloperidol Lactate 2 mg 10/23/18 12:12 Haldol IM Q6H PRN Agitation Hydralazine HCl 10 mg 10/23/18 12:13 Apresoline IV Q4HR PRN Hypertension Sodium Chloride 1,000 mls @ 75 mls/hr 10/21/18 23:00 10/23/18 06:18 Nacl 0.9% 1000 Ml IV 75 mls/hr DIRECT SOFIA Administration Ceftriaxone Sodium 2 gm in 100 mls @ 200 mls/hr 10/22/18 10:00 10/23/18 08:59 Rocephin/Ns 2 Gm/100 Ml IV 200 mls/hr Q24HR SOFIA Administration Ibuprofen 600 mg 10/21/18 22:11 10/23/18 06:23 Motrin PO 600 mg Q6H PRN Administration Pain, Mild (1-3) Lorazepam 1 mg 10/21/18 22:30 10/23/18 06:20 Ativan IV 1 mg Q4H PRN Administration Agitation Ondansetron HCl 4 mg 10/21/18 22:11 Zofran IV Q8H PRN Nausea And Vomiting Sodium Chloride 10 ml 10/22/18 10:00 10/23/18 09:02 Sodium Chloride Flush Syringe 10 Ml IV 10 ml BID SOFIA Administration Sodium Chloride 10 ml 10/21/18 22:11 Sodium Chloride Flush Syringe 10 Ml IV PRN PRN LINE FLUSH Ziprasidone 20 mg 10/21/18 22:15 Geodon IM Q4H PRN Agitation Nutrition/Malnutrition Assess - Dietary Evaluation Nutrition/Malnutrition Findings: Nutrition Notes Start: 10/22/18 15:09 Freq: Status: Active Protocol: Document 10/22/18 15:09 RM (Rec: 10/22/18 15:15 [email or web address]) Nutrition Notes Need for Assessment generated from: Low BMI Initial or Follow up Assessment Other Pertinent Diagnosis Autism, Mental retardation, Nonverbal, Acute encephalopathy Current Diet Regular Labs/Tests Reviewed Pertinent Medications Reviewed Height 6 ft 3 in Weight 56 kg [place] Body Weight (kg) 89.09 BMI 15.4 Subjective/Other Information Screened for low BMI. Pt does not appear to have BMI of 0.5. Weighed pt on bedscale and received 56 kg. Wt corrected accordingly in record. Pt asleep at time of visit. No family present. Per nurse and tech pt has been asleep since start of shift. Noted uneaten breakfast at bedside. No temporal or orbital wasting . Percent of energy/protein needs met: 0%/0% Burn Absent Trauma Absent #1 Nutrition Diagnosis Predicted suboptimal energy intake Etiology autism, mental retardation, acute encephalopathy As Evidenced by Signs and Symptoms BMI of 15.4, uneaten breakfast at bedside Is patient on ventilator? No Is Patient Ambulatory and/or Out of Bed No REE-([place]-confined to bed) 1911.252 Kcal/Kg value to use for calculation 43 Approximate Energy Requirements Using 2408 kcal/Kg Calculation Used for Recommendations Kcal/kg Additional Notes Protein Needs: 67-84g (1.2-1. 5g/kg) Fluid Needs: 1ml/kcal Nutrition Intervention Change Diet Order: Continue current Add Supplement/Snack (indicate name/kcal Ensure Enlive 1 daily /protein ) Provides kCal: 350 Provides Protein (gm) 20 Goal #1 Meet at least 75% of calorie and protein needs via PO and ONS intakes Goal #2 Wt gain/maintenance Anticipated Discharge Needs: Regular diet Follow-Up By: 10/25/18 Additional Comments Follow for PO and ONS intakes
[2018-10-23] MEDS: APRESOLINE IV PRN (16:57)
--- NOTE | 2018-10-23 17:10 | Consultation ---
History of Present Illness - Reason for Consult Consult date: 10/23/18 Reason for consult: psychiatric evaluation - Chief Complaint Chief complaint: 32 M seen on the medical floor. He presented to the hospital with altered mental status. He is determined to have acute encephalopathy. There is concern about psychosis but the family denies a history according to the record. His UDS is positive for amphetamine. This does not confirm use of amphetamine based substances or methamphetamine. He is unable to be interviewed. He is sedated and in restraints. He was given prn haldol earlier this am. Medications and Allergies Allergies Allergy/AdvReac Type Severity Reaction Status Date / Time No Known Allergies Allergy Verified 03/14/15 23:40 Home Medications Medication Instructions Recorded Confirmed Last Taken Type ALBUTEROL Inhaler (OR & NICU) 2 puff IH QID PRN #1 inhalation 01/28/14 10/21/18 03/14/15 Rx [ProAir HFA Inhaler] Active Meds: Active Medications Acetaminophen (Tylenol) 650 mg PO Q4H PRN PRN Reason: Pain MILD(1-3)/Fever >100.5/BRAXTON Albuterol (Proventil) 2.5 mg IH Q4HRT PRN PRN Reason: Shortness Of Breath Haloperidol Lactate (Haldol) 2 mg IM Q6H PRN PRN Reason: Agitation Hydralazine HCl (Apresoline) 10 mg IV Q4HR PRN PRN Reason: Hypertension Last Admin: 10/23/18 16:57 Dose: 10 mg Documented by: Sodium Chloride (Nacl 0.9% 1000 Ml) 1,000 mls @ 75 mls/hr IV DIRECT SOFIA Last Admin: 10/23/18 06:18 Dose: 75 mls/hr Documented by: Ceftriaxone Sodium (Rocephin/Ns 2 Gm/100 Ml) 2 gm in 100 mls @ 200 mls/hr IV Q24HR SOFIA Last Admin: 10/23/18 08:59 Dose: 200 mls/hr Documented by: Ibuprofen (Motrin) 600 mg PO Q6H PRN PRN Reason: Pain, Mild (1-3) Last Admin: 10/23/18 06:23 Dose: 600 mg Documented by: Lorazepam (Ativan) 1 mg IV Q4H PRN PRN Reason: Agitation Last Admin: 10/23/18 06:20 Dose: 1 mg Documented by: Ondansetron HCl (Zofran) 4 mg IV Q8H PRN PRN Reason: Nausea And Vomiting Sodium Chloride (Sodium Chloride Flush Syringe 10 Ml) 10 ml IV BID SOFIA Last Admin: 10/23/18 09:02 Dose: 10 ml Documented by: Sodium Chloride (Sodium Chloride Flush Syringe 10 Ml) 10 ml IV PRN PRN PRN Reason: LINE FLUSH Ziprasidone (Geodon) 20 mg IM Q4H PRN PRN Reason: Agitation Past psychiatric history - Past Medical History Past Medical History: other (developmental delay) Past Surgical History: Other (nose surgery) - Social History Social history: other (He has guardians for 23 years) Mental Status Exam - Vital signs Last Vital Signs Temp 97.9 F 10/23/18 16:28 Pulse 84 10/23/18 16:57 Resp 14 10/23/18 16:28 BP 146/98 10/23/18 16:57 Pulse Ox 99 10/23/18 16:28 - Exam Narrative exam: unable to assess Results Result Diagrams: 10/22/18 06:40 10/22/18 06:40 All other labs normal. Assessment and Plan Assessment and plan: Impression: acute encephalopathy with unknown etiology. Prescription drug monitoring revealed no controlled prescriptions, including amphetamine based meds. Recommendation: Recommend Delirium precautions below: 1. Frequently reorient patient and involve him/her in their care (simple explanations of procedures, tests, medications). 2. Lights on and shades open during daytime hours. 3. Write date and goals of care in a visible place. 4. Try to avoid unnecessary interruptions to sleep during nighttime hours. 5. Obtain glasses, hearing aids from home if patient uses these at baseline. 6. Avoid medications that may exacerbate delirium (especially narcotics, benzodiazepines, barbiturates, ambien, lunesta, and medications with excessive anticholinergic properties). Psych will follow up in 24 hours. Amphetamine use cannot be confirmed and a substance induced delirium cannot be determined at this time. dispo: medical team to continue treating underlying medical conditions will staff with Dr. Monique
[2018-10-24] MEDS: SODIUM CHLORIDE FLUSH SYRINGE 10 ML IV SCH ×3 (00:39→23:53)
[2018-10-24] MEDS: NACL 0.9% 1000 ML 1,000 ML IV SCH (04:56)
[2018-10-24] MEDS: ROCEPHIN/NS 2 GM/100 ML 2 GM/100 ML BAG IV SCH (09:48)
--- NOTE | 2018-10-24 13:20 | Progress Note ---
Assessment and Plan Assessment and plan: --Acute psychosis; present on admission Significantly improved, continue current management Restrained for safety, psych evaluation noted and appreciated --Acute metabolic encephalopathy; Multifactorial, sepsis secondary to UTI, psychosis, positive drug screen, Developmental delay, Continue supportive care --Positive urine drug screen; amphetamine positive Mother and family deny patient using amphetamines Check with case management to evaluate home situation --Sepsis secondary to UTI; empiric antibiotics, cultures negative to date --Lactic acidosis; secondary to UTI, closely monitor --DVT prophylaxis; Lovenox Patient is unable to eat revealed start tube feeding plan of care is reviewed with the patient's family History Interval history: Patient seen and examined medical records reviewed Patient is lethargic and sleepy, is sent for safety No agitation or aggression Vital signs reviewed Hospitalist Physical - Constitutional Vitals: Temp Pulse Resp BP Pulse Ox 97.9 F 94 H 16 143/94 99 10/24/18 11:14 10/24/18 11:14 10/24/18 11:14 10/24/18 11:14 10/24/18 11:14 General appearance: Present: no acute distress, cachectic, disheveled, other (sedated) - EENT Eyes: Present: PERRL, EOM intact - Neck Neck: Present: supple, normal ROM - Respiratory Respiratory effort: normal Respiratory: bilateral: diminished, negative: rales, rhonchi, wheezing - Cardiovascular Rhythm: regular Heart Sounds: Present: S1 & S2 - Extremities Extremities: no ischemia, No edema Extremity abnormal: edema, cyanosis Peripheral Pulses: within normal limits - Abdominal General gastrointestinal: soft, non-tender, non-distended, normal bowel sounds, other - Integumentary Integumentary: Present: clear, warm - Psychiatric Psychiatric: other (encephalopathy) - Neurologic Neurologic: other (non-communicative) Results - Labs CBC & Chem 7: 10/22/18 06:40 10/22/18 06:40 Labs: Laboratory Last Values WBC 10.6 K/mm3 (4.5-11.0) 10/22/18 06:40 RBC 4.27 M/mm3 (3.65-5.03) 10/22/18 06:40 Hgb 13.7 gm/dl (11.8-15.2) 10/22/18 06:40 Hct 40.0 % (35.5-45.6) 10/22/18 06:40 MCV 94 fl (84-94) 10/22/18 06:40 MCH 32 pg (28-32) 10/22/18 06:40 MCHC 34 % (32-34) 10/22/18 06:40 RDW 13.1 % (13.2-15.2) L 10/22/18 06:40 Plt Count 211 K/mm3 (140-440) 10/22/18 06:40 Lymph % (Auto) 9.2 % (13.4-35.0) L 10/22/18 06:40 [place] % (Auto) 7.2 % (0.0-7.3) 10/22/18 06:40 Eos % (Auto) 0.0 % (0.0-4.3) 10/22/18 06:40 Baso % (Auto) 0.1 % (0.0-1.8) 10/22/18 06:40 Lymph # 1.0 K/mm3 (1.2-5.4) L 10/22/18 06:40 [place] # 0.8 K/mm3 (0.0-0.8) 10/22/18 06:40 Eos # 0.0 K/mm3 (0.0-0.4) 10/22/18 06:40 Baso # 0.0 K/mm3 (0.0-0.1) 10/22/18 06:40 Seg Neutrophils % 83.5 % (40.0-70.0) H 10/22/18 06:40 Seg Neutrophils # 8.9 K/mm3 (1.8-7.7) H 10/22/18 06:40 Sodium 142 mmol/L (137-145) 10/22/18 06:40 Potassium 4.4 mmol/L (3.6-5.0) 10/22/18 06:40 Chloride 106.3 mmol/L (98-107) 10/22/18 06:40 Carbon Dioxide 24 mmol/L (22-30) 10/22/18 06:40 Anion Gap 16 mmol/L 10/22/18 06:40 BUN 14 mg/dL (9-20) 10/22/18 06:40 Creatinine 0.9 mg/dL (0.8-1.5) 10/22/18 06:40 Estimated GFR > 60 ml/min 10/22/18 06:40 BUN/Creatinine Ratio 16 % 10/22/18 06:40 Glucose 96 mg/dL (75-100) 10/22/18 06:40 Hemoglobin A1c 5.3 % (4-6) 10/21/18 23:17 Lactic Acid 1.00 mmol/L (0.7-2.0) 10/22/18 06:40 Calcium 8.9 mg/dL (8.4-10.2) 10/22/18 06:40 Total Bilirubin 0.50 mg/dL (0.1-1.2) 10/22/18 06:40 AST 35 units/L (5-40) 10/22/18 06:40 ALT 8 units/L (7-56) 10/22/18 06:40 Alkaline Phosphatase 64 units/L (35-129) 10/22/18 06:40 Ammonia 17.0 umol/L (25-60) L 10/21/18 15:26 Total Creatine Kinase 318 units/L (55-170) H 10/21/18 15:26 Troponin T < 0.010 ng/mL (0.00-0.029) 10/21/18 15:26 Total Protein 6.9 g/dL (6.3-8.2) 10/22/18 06:40 Albumin 3.7 g/dL (3.9-5) L 10/22/18 06:40 Albumin/Globulin Ratio 1.2 % 10/22/18 06:40 TSH 0.534 mlU/mL (0.270-4.200) 10/21/18 15:26 Urine Color Yellow (Yellow) 10/21/18 14:48 Urine Turbidity Cloudy (Clear) 10/21/18 14:48 Urine pH 5.0 (5.0-7.0) 10/21/18 14:48 Ur Specific [place] 1.039 (1.003-1.030) H 10/21/18 14:48 Urine Protein 100 mg/dl mg/dL (Negative) 10/21/18 14:48 Urine Glucose (UA) 50 mg/dL (Negative) 10/21/18 14:48 Urine Ketones Tr mg/dL (Negative) 10/21/18 14:48 Urine Blood Sm (Negative) 10/21/18 14:48 Urine Nitrite Neg (Negative) 10/21/18 14:48 Urine Bilirubin Neg (Negative) 10/21/18 14:48 Urine Urobilinogen 2.0 mg/dL (<2.0) 10/21/18 14:48 Ur Leukocyte Esterase Neg (Negative) 10/21/18 14:48 Urine WBC (Auto) 2.0 /HPF (0.0-6.0) 10/21/18 14:48 Urine RBC (Auto) 1.0 /HPF (0.0-6.0) 10/21/18 14:48 U Epithel Cells (Auto) < 1.0 /HPF (0-13.0) 10/21/18 14:48 Urine Bacteria (Auto) 1+ /HPF (Negative) 10/21/18 14:48 Urine Mucus Few /HPF 10/21/18 14:48 Urine Yeast (Budding) Few /HPF 10/21/18 14:48 Salicylates < 0.3 mg/dL (2.8-20.0) L 10/21/18 15:26 Urine Opiates Screen Presumptive negative 10/21/18 14:48 Urine Methadone Screen Presumptive negative 10/21/18 14:48 Acetaminophen < 5.0 ug/mL (10.0-30.0) L 10/21/18 15:26 Ur Barbiturates Screen Presumptive negative 10/21/18 14:48 Ur Phencyclidine Scrn Presumptive negative 10/21/18 14:48 Ur Amphetamines Screen Presumptive positive 10/21/18 14:48 U Benzodiazepines Scrn Presumptive negative 10/21/18 14:48 Urine Cocaine Screen Presumptive negative 10/21/18 14:48 U Marijuana (THC) Screen Presumptive negative 10/21/18 14:48 Drugs of Abuse Note Disclamer 10/21/18 14:48 Plasma/Serum Alcohol < 0.01 % (0-0.07) 10/21/18 15:26 Active Medications - Current Medications Current Medications: Generic Name Dose Route Start Last Admin Trade Name Freq PRN Reason Stop Dose Admin Acetaminophen 650 mg 10/21/18 22:11 Tylenol PO Q4H PRN Pain MILD(1-3)/Fever >100.5/BRAXTON Albuterol 2.5 mg 10/21/18 22:24 Proventil IH Q4HRT PRN Shortness Of Breath Haloperidol Lactate 2 mg 10/23/18 12:12 Haldol IM Q6H PRN Agitation Hydralazine HCl 10 mg 10/23/18 12:13 10/23/18 16:57 Apresoline IV 10 mg Q4HR PRN Administration Hypertension Sodium Chloride 1,000 mls @ 75 mls/hr 10/21/18 23:00 10/24/18 04:56 Nacl 0.9% 1000 Ml IV 75 mls/hr DIRECT SOFIA Administration Ceftriaxone Sodium 2 gm in 100 mls @ 200 mls/hr 10/22/18 10:00 10/24/18 09:48 Rocephin/Ns 2 Gm/100 Ml IV 200 mls/hr Q24HR SOFIA Administration Ibuprofen 600 mg 10/21/18 22:11 10/23/18 06:23 Motrin PO 600 mg Q6H PRN Administration Pain, Mild (1-3) Lorazepam 1 mg 10/21/18 22:30 10/23/18 06:20 Ativan IV 1 mg Q4H PRN Administration Agitation Ondansetron HCl 4 mg 10/21/18 22:11 Zofran IV Q8H PRN Nausea And Vomiting Sodium Chloride 10 ml 10/22/18 10:00 10/24/18 09:48 Sodium Chloride Flush Syringe 10 Ml IV 10 ml BID SOFIA Administration Sodium Chloride 10 ml 10/21/18 22:11 Sodium Chloride Flush Syringe 10 Ml IV PRN PRN LINE FLUSH Ziprasidone 20 mg 10/21/18 22:15 Geodon IM Q4H PRN Agitation Nutrition/Malnutrition Assess - Dietary Evaluation Nutrition/Malnutrition Findings: Nutrition Notes Start: 10/22/18 15:09 Freq: Status: Active Protocol: Document 10/22/18 15:09 RM (Rec: 10/22/18 15:15 [email or web address]) Nutrition Notes Need for Assessment generated from: Low BMI Initial or Follow up Assessment Other Pertinent Diagnosis Autism, Mental retardation, Nonverbal, Acute encephalopathy Current Diet Regular Labs/Tests Reviewed Pertinent Medications Reviewed Height 6 ft 3 in Weight 56 kg [place] Body Weight (kg) 89.09 BMI 15.4 Subjective/Other Information Screened for low BMI. Pt does not appear to have BMI of 0.5. Weighed pt on bedscale and received 56 kg. Wt corrected accordingly in record. Pt asleep at time of visit. No family present. Per nurse and tech pt has been asleep since start of shift. Noted uneaten breakfast at bedside. No temporal or orbital wasting . Percent of energy/protein needs met: 0%/0% Burn Absent Trauma Absent #1 Nutrition Diagnosis Predicted suboptimal energy intake Etiology autism, mental retardation, acute encephalopathy As Evidenced by Signs and Symptoms BMI of 15.4, uneaten breakfast at bedside Is patient on ventilator? No Is Patient Ambulatory and/or Out of Bed No REE-([place]-confined to bed) 1911.252 Kcal/Kg value to use for calculation 43 Approximate Energy Requirements Using 2408 kcal/Kg Calculation Used for Recommendations Kcal/kg Additional Notes Protein Needs: 67-84g (1.2-1. 5g/kg) Fluid Needs: 1ml/kcal Nutrition Intervention Change Diet Order: Continue current Add Supplement/Snack (indicate name/kcal Ensure Enlive 1 daily /protein ) Provides kCal: 350 Provides Protein (gm) 20 Goal #1 Meet at least 75% of calorie and protein needs via PO and ONS intakes Goal #2 Wt gain/maintenance Anticipated Discharge Needs: Regular diet Follow-Up By: 10/25/18 Additional Comments Follow for PO and ONS intakes
--- NOTE | 2018-10-24 17:25 | Progress Note ---
Subjective - Reason for Consult Consult date: 10/24/18 Reason for consult: Psychiatric Follow-up Evaluation - Chief Complaint Chief complaint: Patient is a 32 year old male seen on the medical floor. He presented to the hospital with altered mental status. Today the patient is calm but drowsy during the assessment. He is determined to have acute encephalopathy. There is concern about psychosis but the family denies a history according to the record. His UDS is positive for amphetamine. This does not confirm use of amphetamine based substances or methamphetamine. He is unable to be interviewed. He is sedated and in restraints. Patient appears drowsy/lethargic. No agitation noted. Mental Status Exam - Vital signs Last Vital Signs Temp 98.1 F 10/24/18 16:07 Pulse 91 H 10/24/18 16:07 Resp 14 10/24/18 16:07 BP 143/94 10/24/18 16:07 Pulse Ox 97 10/24/18 16:07 - Exam Narrative exam: Unable to Assess due to patient's medical condition. Assessment and Plan Impression: Acute encephalopathy with unknown etiology. Prescription drug monitoring revealed no controlled prescriptions, including amphetamine based meds. Recommend Delirium precautions below: 1. Frequently reorient patient and involve him/her in their care (simple explanations of procedures, tests, medications). 2. Lights on and shades open during daytime hours. 3. Write date and goals of care in a visible place. 4. Try to avoid unnecessary interruptions to sleep during nighttime hours. 5. Obtain glasses, hearing aids from home if patient uses these at baseline. 6. Avoid medications that may exacerbate delirium (especially narcotics, benzodiazepines, barbiturates, ambien, lunesta, and medications with excessive anticholinergic properties). Disposition: psychiatry will follow-up in 24 hours. Will staff with Dr[address] Carlo Monique.
[2018-10-24] MEDS: APRESOLINE IV PRN (23:44)
[2018-10-24] MEDS: ATIVAN IV PRN (23:45)
[2018-10-25] MEDS: NACL 0.9% 1000 ML 1,000 ML IV SCH (03:07)
[2018-10-25 05:53] LABS: BUN/Creatinine Ratio 12; Blood Urea Nitrogen 7 mg/dL (9-20); Calcium 8.9 mg/dL (8.4-10.2); Hemolysis Index 14
[2018-10-25] MEDS: SODIUM CHLORIDE FLUSH SYRINGE 10 ML IV SCH (10:51)
[2018-10-25] MEDS: ROCEPHIN/NS 2 GM/100 ML 2 GM/100 ML BAG IV SCH (10:51)
[2018-10-25] MEDS ORDERED: K-DUR PO ONE (11:00)
[2018-10-25] MEDS ORDERED: POTASSIUM CHLORIDE FEEDTUBE ONE (11:00)
[2018-10-25] MEDS: ATIVAN IV PRN (11:23)
--- NOTE | 2018-10-25 12:33 | Progress Note ---
Subjective - Reason for Consult Consult date: 10/25/18 Reason for consult: Psychiatry Follow-up - Chief Complaint Chief complaint: "The patient is nonverbal" 32 year old male seen on the medical floor. He presented to the hospital with altered mental status. Today the patient is calm during the assessment. He would grunt to try to communicate. Per the staff, the patient ate his breakfast with assistance (in restraints). Per collateral information from his director field services, Ms Aster Rodriguez [phone]. She stated that the patient do not take any psy medication, nor does anyone in the home take stimulants to her knowledge. She stated that the the patient is seen by psychiatrist once a year because of his autism dx. She stated that the patient was found wandering a day prior to his visit to the ER. 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 She stated that the patient can return home once discharged. No gestures of SI/HI's. Mental Status Exam - Vital signs Last Vital Signs Temp 98.1 F 10/25/18 11:40 Pulse 96 H 10/25/18 11:40 Resp 18 10/25/18 11:40 BP 137/81 10/25/18 11:40 Pulse Ox 100 10/25/18 11:40 - Exam Narrative exam: Unable to complete the MSE because of the patient;s condition. Assessment and Plan Impression: Today the patient was calm during the assessment The patient was in restraints. . Recommendation/Plan: Psy sign off. The patient can follow up with his PCP. Staffed with Dr. Carlo Monique.
--- NOTE | 2018-10-25 15:36 | Discharge Summary ---
Providers - Providers Date of Admission: 10/21/18 16:17 Date of discharge: 10/25/18 Attending physician: SANTO BRICE 10/21/18 Consult to Case Management [CONS] Routine Services Needed at Discharge: [employer] [place] [employer] Notified:: ss 10/21/18 22:15 Consult to Mental Health [CONS] Routine Reason For Exam: psychosis Place consult to:: y Notified:: . 10/23/18 12:10 psychiatry consult [Consult to Mental Health] [CONS] Routine Reason For Exam: acute psychosis Place consult to:: AISHWARYA Notified:: AISHWARYA Phone number called:: [phone] Was contact made?: Yes Time called:: 12:22 [facility] Reason for admission: Altered level of consciousness/acute psychosis. Condition: Fair Pertinent studies: CT head: no acute abnormality CXR : normal study Hospital course: 32 yo male with hx of severe intellectual disability and autism who presents with agitation, altered mental status and UTI. He is nonverbal at baseline.Patient also had acute psychotic symptoms. Symptomatically managed,evaluated by pych,medications optimised. Today patient feels better,no new complaints,vital signs stable Physical exam unremarkable Discharge Diagnosis: --Acute psychosis; present on admission Significantly improved, continue current management Restrained for safety, psych evaluation noted and appreciated --Acute metabolic encephalopathy; Multifactorial, sepsis secondary to UTI, psychosis, positive drug screen, Developmental delay, Continue supportive care --Positive urine drug screen; amphetamine positive Mother and family deny patient using amphetamines Check with case management to evaluate home situation --Sepsis secondary to UTI; empiric antibiotics, cultures negative to date --Lactic acidosis; secondary to UTI, closely monitor --DVT prophylaxis; Lovenox Patient is stable to dc home Disposition: DC-01 TO HOME OR SELFCARE Time spent for discharge: 32 min Core Measure Documentation - Palliative Care Palliative Care/ Comfort Measures: Not Applicable - Core Measures Any of the following diagnoses?: none Exam - Constitutional Vitals: Temp Pulse Resp BP Pulse Ox 98.1 F 96 H 18 137/81 100 10/25/18 11:40 10/25/18 11:40 10/25/18 11:40 10/25/18 11:40 10/25/18 14:49 General appearance: Present: no acute distress, mild distress, well-nourished - EENT Eyes: Present: PERRL, EOM intact - Neck Neck: Present: supple, normal ROM - Respiratory Respiratory effort: normal Respiratory: bilateral: diminished, negative: rales, rhonchi, wheezing - Cardiovascular Rhythm: regular Heart Sounds: Present: S1 & S2 - Extremities Extremities: no ischemia, No edema - Abdominal General gastrointestinal: Present: soft, non-tender, non-distended, normal bowel sounds - Integumentary Integumentary: Present: clear, warm - Musculoskeletal Musculoskeletal: strength equal bilaterally - Psychiatric Psychiatric: appropriate mood/affect, cooperative - Neurologic Neurologic: moves all extremities Plan Activity: advance as tolerated, fall precautions Diet: regular Additional Instructions: f/u [facility] in 1 week. Fall Precautions. Patient needs close supervision Follow up with: FELIX LINDO MD [Primary Care Provider] - 7 Days YASMANY VALDIVIA MD [Staff Physician] - 7 Days Prescriptions: ALBUTEROL Inhaler (OR & NICU) [ProAir HFA Inhaler] 2 puff IH QID PRN #1 inhalation PRN Reason: Shortness Of Breath
[2018-10-26 18:02] VITALS: BP 137/81
== END 2018-10-25 17:40 | disposition home or self-care (01) | DRG 871 ==
LOC: ED 14:05 → EEVIPCON 14:05 → 3A 16:17
PROVIDERS: ADMIT Internal Medicine; ATTEND Internal Medicine
DX: A41.9 Sepsis, unspecified organism (principal); G93.41 Metabolic encephalopathy; N39.0 Urinary tract infection, site not specified; F23 Brief psychotic disorder; J45.909 Unspecified asthma, uncomplicated
CPT/HCPCS: 36415; 70450; 71045; 80048; 80053; 80307; 80320; 81001; 82140; 82550; 83036; 84443; 84484; 85025; 87040; 87086; 93005; 93010; G0378; G0480; J0360; J0696; J1630; J2060; J7030